=== PATIENT | male | born 1960 | race Caucasian/White ===

== ENCOUNTER 2016-07-24 11:31 | Emergency (ER) | payer OTHER ==
[2016-07-24 11:38] VITALS: BP 193/106; PULSE 74; RESP 20; TEMP 98.2
[2016-07-24] MEDS ORDERED: HYDROcodone/APAP 5-325MG 1 EACH TAB PO STA (12:03)
[2016-07-24] MEDS ORDERED: KETOROLAC 60 MG/2 ML VIAL IM STA (12:03)
[2016-07-24] MEDS ORDERED: predniSONE 20 MG TAB PO STA (12:03)
--- NOTE | 2016-07-24 12:05 | ED ---
General Adult HPI - General Chief complaint: Extremity Injury, Lower Stated complaint: knee injury Time Seen by Provider: 07/24/16 11:39 Source: patient, RN notes reviewed, old records reviewed Mode of arrival: wheelchair Limitations: no limitations - History of Present Illness Initial comments: This is a 56-year-old male ER for evaluation of left knee pain. Patient twisting injury will getting his truck earlier today. Patient has history of arthritis, history of knee issues. Patient denies any specific trauma, did a twisting injury able to ambulate with full range of motion although decreased flexion, patient does admit to increased swelling on the, no modifying factors for symptoms since injury. No other injuries. Patient is able to bear weight - Related Data Home Medications Medication Instructions Recorded Confirmed Carvedilol [Coreg] 3.125 mg PO BID 07/24/16 07/24/16 Fenofibrate 160 mg PO DAILY 07/24/16 07/24/16 Gabapentin 600 mg PO HS 07/24/16 07/24/16 Hydrochlorothiazide 25 mg PO DAILY 07/24/16 07/24/16 Lisinopril [Zestril] 20 mg PO BID 07/24/16 07/24/16 Allergies Allergy/AdvReac Type Severity Reaction Status Date / Time No Known Allergies Allergy Verified 07/24/16 11:51 Review of Systems ROS Statement: Those systems with pertinent positive or pertinent negative responses have been documented in the HPI. ROS Other: All systems not noted in ROS Statement are negative. Past Medical History Past Medical History: Hyperlipidemia, Hypertension Additional Past Medical History / Comment(s): neuropathy, carpal tunnel History of Any Multi-Drug Resistant Organisms: None Reported Past Surgical History: Bowel Resection Additional Past Surgical History / Comment(s): carpal tunnel surgery Past Psychological History: No Psychological Hx Reported Smoking Status: Never smoker Past Alcohol Use History: Occasional Past Drug Use History: None Reported General Exam Limitations: no limitations General appearance: alert, in no apparent distress Head exam: Present: atraumatic, normocephalic, normal inspection Eye exam: Present: normal appearance, PERRL, EOMI. Absent: scleral icterus, conjunctival injection, periorbital swelling ENT exam: Present: normal exam, mucous membranes moist Neck exam: Present: normal inspection. Absent: tenderness, meningismus, lymphadenopathy Respiratory exam: Present: normal lung sounds bilaterally. Absent: respiratory distress, wheezes, rales, rhonchi, stridor Cardiovascular Exam: Present: regular rate, normal rhythm, normal heart sounds. Absent: systolic murmur, diastolic murmur, rubs, gallop, clicks GI/Abdominal exam: Present: soft, normal bowel sounds. Absent: distended, tenderness, guarding, rebound, rigid Extremities exam: Present: normal inspection, full ROM, normal capillary refill , other (Mild left joint effusion, tenderness no bony tenderness). Absent: tenderness, pedal edema, joint swelling, calf tenderness Back exam: Present: normal inspection Neurological exam: Present: alert, oriented X3, CN II-XII intact Psychiatric exam: Present: normal affect, normal mood Skin exam: Present: warm, dry, intact, normal color. Absent: rash Course Vital Signs 07/24/16 11:35 Temperature 98.2 F Pulse Rate 74 Respiratory 20 Rate Blood Pressure 193/106 O2 Sat by Pulse 99 Oximetry - Reevaluation(s) Reevaluation #1: 07/24/16 12:04 Patient's symptoms improved Medical Decision Making - Medical Decision Making 56 console the left knee pain. Left knee sprain, patient with twisting injury to left knee. He she'll given follow-up with orthopedics, pandas times control able to ambulate without difficulty and patient can be discharged home Disposition Clinical Impression: Strain of left knee, Effusion, left knee Disposition: HOME SELF-CARE Condition: Good Instructions: Knee Sprain (ED), Knee Pain (ED) Referrals: Tito Chiu DO [Primary Care Provider] - 1-2 days
== END 2016-07-24 12:25 | disposition home or self-care (01) ==
LOC: EC 11:31
DX: S86.912A Strain of unspecified muscle(s) and tendon(s) at lower leg level, left leg, initial encounter (principal); I10 Essential (primary) hypertension; G62.9 Polyneuropathy, unspecified; E78.5 Hyperlipidemia, unspecified; M19.90 Unspecified osteoarthritis, unspecified site; Z79.899 Other long term (current) drug therapy; X50.1XXA Overexertion from prolonged static or awkward postures, initial encounter
CPT/HCPCS: 99283; 96372; J1885; J7512

== ENCOUNTER → 2016-09-25 | Outpatient (CLI) | payer OTHER ==
--- NOTE | 2016-09-25 14:00 | CONS ---
DATE OF CONSULTATION: 09/25/2016 CONSULTATION/NEW PATIENT EVALUATION: A 56-year-old gentleman who has been evaluated in the [facility] for possible obstructive sleep apnea-hypopnea syndrome. HISTORY OF PRESENT ILLNESS/SLEEP-WAKE EVALUATION: SLEEP SCHEDULE: Patient's usual sleep schedule on working days from around 10 p.m. until 6:30 a.m. and on weekends from around 10 p.m. to 8 a.m. FALLING ASLEEP: Sometimes he has problem with falling asleep related to the pain and numbness in his arms, back and feet. DURING SLEEP: He sleeps with his and according to her, he snores. He wakes up with nocturia. He usually sleeps on the side and back position. No history of hypnagogic hallucinations, sleep paralysis or cataplexy. DURING THE DAY/WAKE STATE: He usually does not take any naps. [place] Sleepiness Scale is 6. Past medical history positive for hypertension, hyperlipidemia, carpal tunnel syndrome, numbness in the arms and legs. Also back problems, neck problems. PAST SURGICAL HISTORY: Status post bilateral surgery for carpal tunnel syndrome. MEDICATIONS: Patient does not remember the name of the medications. He takes medications for hypertension, cholesterol and he is on Neurontin. SOCIAL HISTORY: Negative for smoking. Alcohol consumption up to 6 beers per month. REVIEW OF SYSTEMS: Numbness and feeling cold in the feet and numbness in the arms. FAMILY HISTORY: Arthritis, snoring, diabetes, cancer. During physical exam, a 56-year-old gentleman without distress. BP 149/91, HR 78, RR 16. Height 5 foot 7-1/2, weight 271. BMI of 41.8. Neck 18 inches in circumference. Temperature 97.6. Oxygen saturation at room air 98%. Oropharynx extremely low position of soft palate Mallampati 4. ABDOMEN: Obese. NECK: Supple. No JVD. Thyroid is not palpable. LUNGS: Clear to percussion and to auscultation. Good air exchange. No wheezing or rhonchi. HEART: S1, S2 regular. No murmurs, gallops or rubs. EXTREMITIES: No clubbing or cyanosis. Some numbness with the touching of the feet. IMPRESSION: 1. Snoring, awakenings from sleep with nocturia, extremely low position of soft palate, obstructive sleep apnea-hypopnea syndrome. 2. Obesity, body mass index 41.8. 3. Hypertension. 4. Neck problems. 5. Back problems with a history of herniation of discs. 6. Numbness of the feet, most probably related to back problems. 7. History of carpal tunnel syndrome, bilaterally, status post surgical treatment but patient continued to have some numbness in the arms. PLAN: 1. Polysomnography for evaluation of patient's breathing during sleep. 2. CPAP/BiPAP titration if sleep study confirms obstructive sleep apnea-hypopnea syndrome. 3. Preferable position during sleep on the side. 4. No driving if patient feels any sleepiness. Patient is aware of civil and criminal liability for unsafe driving. 5. I will see patient for followup visit to explain results of the testing and following plan. Thank you very much for allowing referring this patient for consultation. Sincerely, Armando Cruz MD, PhD, FAASM. Diplomat of [employer], Sleep Medicine Board by [employer] Tester/[employer] of [facility] [place]
== END ==
LOC: SLEEP 12:23
PROVIDERS: ATTEND Internal Medicine
DX: G47.33 Obstructive sleep apnea (adult) (pediatric) (principal); E66.9 Obesity, unspecified; I10 Essential (primary) hypertension; Z87.39 Personal history of other diseases of the musculoskeletal system and connective tissue; Z68.41 Body mass index [BMI] 40.0-44.9, adult
CPT/HCPCS: 99211

== ENCOUNTER → 2016-11-07 | Outpatient (CLI) | payer OTHER ==
--- NOTE | 2016-11-07 22:28 | MR ---
EXAMINATION TYPE: MR cervical spine wo con DATE OF EXAM: 11/07/2016 COMPARISON: NONE HISTORY: neck and back pain x4-5 years TECHNIQUE: Multiplanar, multisequence images of the cervical spine were acquired. C2-C3: No evidence for degenerative disc disease. No disc bulge/herniation or protrusion. No Canal stenosis. Foramina are patent bilaterally. C3-C4: No evidence for degenerative disc disease. No disc bulge/herniation or protrusion. No Canal stenosis. Bilateral foraminal narrowing is present from uncovertebral joint hypertrophy. C4-C5: No evidence for degenerative disc disease. No disc bulge/herniation or protrusion. No Canal stenosis. Moderate bilateral foraminal narrowing vertebral joint hypertrophy is present. C5-C6: Central disc bulge is present. These may have subligamentous disc extension inferiorly. This i s mild anterior thecal sac compression. No cord contact is evident. No spinal canal stenosis present. Bilateral foraminal narrowing from uncovertebral C6-C7: Broad-based central disc bulge is present with mild anterior thecal sac compression. No AP spi nal canal stenosis. C7-T1: There is a central and right paracentral disc herniation moderate size with moderate anterior thecal sac compression. This is in close approximation with the spinal cord. Mild cord flattening may be present. Right foramen is narrowed. Disc desiccation is present throughout the cervical spine. Cervical spinal cord maintains normal sign al through its visualized course. Vertebral body heights are preserved. IMPRESSION: 1. Large central and right paracentral disc herniation C7-T1 with cord flattening. 2. C5-6 disc bulging which may have some subligamentous disc extension. No cord contact is evident.
== END | disposition home or self-care (01) ==
LOC: RADMRIMAIN 20:48
PROVIDERS: ATTEND Nurse Practitioner Family
DX: M50.23 Other cervical disc displacement, cervicothoracic region (principal); M50.222 Other cervical disc displacement at C5-C6 level
CPT/HCPCS: 72141

== ENCOUNTER 2017-01-30 17:12 | Observation (INO) | payer OTHER ==
[2017-01-30] MEDS ORDERED: SODIUM CHLORIDE 0.9% 500 ML IV STA (17:34)
--- NOTE | 2017-01-30 17:49 | ED ---
General Adult HPI - General Chief complaint: Recheck/Abnormal Lab/Rx Stated complaint: Hypertension. Sent by Time Seen by Provider: 01/30/17 17:25 Source: patient Mode of arrival: ambulatory Limitations: no limitations - History of Present Illness Initial comments: 56-year-old male patient with a past medical history of hypertension, hyperlipidemia and most recently acute kidney injury presents to emergency department today for evaluation of high blood pressure. Patient states that he was in to see his primary care physician today because he has been having headaches for the last couple of days and his blood pressure was in the 200s over 120s. Patient states that 3 weeks ago he had been not feeling well and was having episodes of dizziness so he went in to see his primary care doctor, states that she did blood work at that time and found that he had some kidney failure. Patient states that she took him off his hydrochlorothiazide and lisinopril at that time leaving him to take his Coreg 3.125 mg. Patient states that he has been checking his blood pressure at home and has had high levels since been taken off these medications. Patient states he has also had some intermittent chest pain throughout the last couple of weeks, sweats, nausea, and intermittent headaches. States that the chest pain is mild in the last for a short time and then dissipate. Patient states that he currently has a generalized mild headache. Denies any current chest pain. Patient states that his primary care physician and encouraged him to come to the emergency department for further evaluation today. Patient denies any recent fever, chills, shortness breath, abdominal pain, vomiting, diarrhea, back pain, numbness, tingling, weakness, hematuria, dysuria, urinary frequency, urinary urgency, decreased urine output, visual changes, extremity swelling, or any other complaints. - Related Data Home Medications Medication Instructions Recorded Confirmed Carvedilol [Coreg] 3.125 mg PO BID 07/24/16 01/30/17 Gabapentin 600 mg PO BID 07/24/16 01/30/17 Allergies Allergy/AdvReac Type Severity Reaction Status Date / Time No Known Allergies Allergy Verified 01/30/17 17:54 Review of Systems ROS Statement: Those systems with pertinent positive or pertinent negative responses have been documented in the HPI. ROS Other: All systems not noted in ROS Statement are negative. Past Medical History Past Medical History: Hyperlipidemia, Hypertension Additional Past Medical History / Comment(s): neuropathy, carpal tunnel, bowel obstruction History of Any Multi-Drug Resistant Organisms: None Reported Past Surgical History: Bowel Resection Additional Past Surgical History / Comment(s): carpal tunnel surgery Past Psychological History: No Psychological Hx Reported Smoking Status: Never smoker Past Alcohol Use History: Occasional Past Drug Use History: None Reported General Exam Limitations: no limitations General appearance: alert, in no apparent distress Head exam: Present: atraumatic, normocephalic, normal inspection Eye exam: Present: normal appearance, PERRL, EOMI. Absent: scleral icterus, conjunctival injection, periorbital swelling ENT exam: Present: normal exam, normal oropharynx, mucous membranes moist Neck exam: Present: normal inspection, full ROM. Absent: tenderness, meningismus, lymphadenopathy Respiratory exam: Present: normal lung sounds bilaterally. Absent: respiratory distress, wheezes, rales, rhonchi, stridor Cardiovascular Exam: Present: regular rate, normal rhythm, normal heart sounds. Absent: systolic murmur, diastolic murmur, rubs, gallop, clicks GI/Abdominal exam: Present: soft, normal bowel sounds. Absent: distended, tenderness, guarding, rebound, rigid Extremities exam: Present: normal inspection, full ROM, normal capillary refill. Absent: tenderness, pedal edema, joint swelling, calf tenderness Back exam: Present: normal inspection Neurological exam: Present: alert, oriented X3, CN II-XII intact Psychiatric exam: Present: normal affect, normal mood Skin exam: Present: warm, dry, intact, normal color. Absent: rash Course Vital Signs 01/30/17 01/30/17 01/30/17 17:15 18:00 18:30 Temperature 98.9 F Pulse Rate 79 65 64 Respiratory 20 18 Rate Blood Pressure 136/90 181/115 199/113 O2 Sat by Pulse 97 99 Oximetry 01/30/17 01/30/17 01/30/17 18:40 18:47 19:30 Temperature 97.8 F Pulse Rate 64 Respiratory 16 Rate Blood Pressure 219/106 188/89 183/99 O2 Sat by Pulse 98 Oximetry 01/30/17 19:44 Temperature Pulse Rate 64 Respiratory 16 Rate Blood Pressure 194/107 O2 Sat by Pulse 98 Oximetry - Reevaluation(s) Reevaluation #1: 01/30/17 18:33 Patients BP has remained elevated. Will give 20mg Labetalol IVP and continue to monitor. Awaiting results at this time. EKG Findings - EKG Comments: EKG Findings:: EKG obtained at 1744 reveals normal sinus rhythm, minimal voltage criteria for LVH, may be normal variant, nonspecific T-wave abnormality , ventricular rate 72, ND interval 176, QRS jain 84, QT 378, QTC 413. No evidence of ST elevation or depression. No EKG on file for comparison. Medical Decision Making - Medical Decision Making 56-year-old male patient presented to emergency department today for evaluation of hypertension. During history and physical exam patient reported having intermittent chest pain for the last 2 weeks as well as being newly diagnosed with kidney failure by his primary care physician. Lab work was obtained and did show a BUN of 33, creatinine of 2.09, and a GFR of 33. Patient did report that his initial GFR with lab work obtained by his doctor was 19 so this has improved. EKG did show some changes however there is no comparison for evaluation. Did discuss the case with my attending Dr. Mc who agrees the patient should be admitted for further evaluation by cardiology. He did speak to Leonor FERRIS for Dr. Eubanks who accepted the patient. In addition patient's blood pressure did remain elevated throughout stay even after a total of 40 mg of labetalol had been given. Hydralazine was added for as needed dosing for the floor. Patient was also started on aspirin and Nitropaste. - Lab Data Result diagrams: 01/30/17 17:42 01/30/17 17:42 Lab Results 01/30/17 01/30/17 01/30/17 Range/Units 17:42 17:42 17:42 WBC 7.6 (3.8-10.6) k/uL RBC 4.35 (4.30-5.90) m/uL Hgb 13.9 (13.0-17.5) gm/dL Hct 38.8 L (39.0-53.0) % MCV 89.3 (80.0-100.0) fL MCH 32.0 (25.0-35.0) pg MCHC 35.9 (31.0-37.0) g/dL RDW 14.0 (11.5-15.5) % Plt Count 194 (150-450) k/uL Neutrophils % 62 % Lymphocytes % 26 % Monocytes % 6 % Eosinophils % 3 % Basophils % 1 % Neutrophils # 4.7 (1.3-7.7) k/uL Lymphocytes # 1.9 (1.0-4.8) k/uL Monocytes # 0.5 (0-1.0) k/uL Eosinophils # 0.2 (0-0.7) k/uL Basophils # 0.1 (0-0.2) k/uL PT (9.0-12.0) sec INR (<1.2) APTT (22.0-30.0) sec Sodium 144 (137-145) mmol/L Potassium 4.3 (3.5-5.1) mmol/L Chloride 110 H (98-107) mmol/L Carbon Dioxide 22 (22-30) mmol/L Anion Gap 12 mmol/L BUN 33 H (9-20) mg/dL Creatinine 2.09 H (0.66-1.25) mg/dL Est GFR (MDRD) Af Amer 40 (>60 ml/min/1.73 sqM) Est GFR (MDRD) Non-Af 33 (>60 ml/min/1.73 sqM) Glucose 101 H (74-99) mg/dL Calcium 9.9 (8.4-10.2) mg/dL Magnesium 1.7 (1.6-2.3) mg/dL Total Bilirubin 0.5 (0.2-1.3) mg/dL AST 24 (17-59) U/L ALT 33 (21-72) U/L Alkaline Phosphatase 70 (38-126) U/L Total Creatine Kinase 107 (55-170) U/L CK-MB (CK-2) 1.6 (0.0-2.4) ng/mL CK-MB (CK-2) Rel Index 1.5 Troponin I <0.012 (0.000-0.034) ng/mL Total Protein 7.2 (6.3-8.2) g/dL Albumin 4.4 (3.5-5.0) g/dL Urine Color Urine Appearance (Clear) Urine pH (5.0-8.0) Ur Specific [place] (1.001-1.035) Urine Protein (Negative) Urine Glucose (UA) (Negative) Urine Ketones (Negative) Urine Blood (Negative) Urine Nitrite (Negative) Urine Bilirubin (Negative) Urine Urobilinogen (<2.0) mg/dL Ur Leukocyte Esterase (Negative) Urine RBC (0-5) /hpf Urine WBC (0-5) /hpf Urine Bacteria (None) /hpf Hyaline Casts (0-2) /lpf 01/30/17 01/30/17 Range/Units 17:42 18:25 WBC (3.8-10.6) k/uL RBC (4.30-5.90) m/uL Hgb (13.0-17.5) gm/dL Hct (39.0-53.0) % MCV (80.0-100.0) fL MCH (25.0-35.0) pg MCHC (31.0-37.0) g/dL RDW (11.5-15.5) % Plt Count (150-450) k/uL Neutrophils % % Lymphocytes % % Monocytes % % Eosinophils % % Basophils % % Neutrophils # (1.3-7.7) k/uL Lymphocytes # (1.0-4.8) k/uL Monocytes # (0-1.0) k/uL Eosinophils # (0-0.7) k/uL Basophils # (0-0.2) k/uL PT 9.7 (9.0-12.0) sec INR 0.9 (<1.2) APTT 22.7 (22.0-30.0) sec Sodium (137-145) mmol/L Potassium (3.5-5.1) mmol/L Chloride (98-107) mmol/L Carbon Dioxide (22-30) mmol/L Anion Gap mmol/L BUN (9-20) mg/dL Creatinine (0.66-1.25) mg/dL Est GFR (MDRD) Af Amer (>60 ml/min/1.73 sqM) Est GFR (MDRD) Non-Af (>60 ml/min/1.73 sqM) Glucose (74-99) mg/dL Calcium (8.4-10.2) mg/dL Magnesium (1.6-2.3) mg/dL Total Bilirubin (0.2-1.3) mg/dL AST (17-59) U/L ALT (21-72) U/L Alkaline Phosphatase (38-126) U/L Total Creatine Kinase (55-170) U/L CK-MB (CK-2) (0.0-2.4) ng/mL CK-MB (CK-2) Rel Index Troponin I (0.000-0.034) ng/mL Total Protein (6.3-8.2) g/dL Albumin (3.5-5.0) g/dL Urine Color Yellow Urine Appearance Clear (Clear) Urine pH 5.5 (5.0-8.0) Ur Specific [place] 1.013 (1.001-1.035) Urine Protein 2+ H (Negative) Urine Glucose (UA) Negative (Negative) Urine Ketones Negative (Negative) Urine Blood Negative (Negative) Urine Nitrite Negative (Negative) Urine Bilirubin Negative (Negative) Urine Urobilinogen <2.0 (<2.0) mg/dL Ur Leukocyte Esterase Negative (Negative) Urine RBC <1 (0-5) /hpf Urine WBC <1 (0-5) /hpf Urine Bacteria Rare H (None) /hpf Hyaline Casts 1 (0-2) /lpf - Radiology Data Radiology results: report reviewed, image reviewed Frontal and lateral views of the chest are obtained, heart and mediastinum are normal. Lungs are clear. Diaphragm is normal. Bony thorax is intact. Impression by Dr. Patel shows normal chest. No change. Disposition Clinical Impression: Chest pain, Hypertension, Acute kidney failure Disposition: ADMITTED IP TO THIS [facility] Condition: Fair Decision to Admit Reason: Admit from EC Decision Date: 01/30/17 Decision Time: 19:27
[2017-01-30 18:11] LABS: Basophils # (A) 0.1 k/uL (0-0.2); Basophils % (A) 1 %; CH 31.9; Eosinophils # (A) 0.2 k/uL (0-0.7); Eosinophils % (A) 3 %; HCT 38.8 % (39.0-53.0); HDW 3.16; HGB 13.9 gm/dL (13.0-17.5); Luc # (Auto) 0.18; Luc % (Auto) 2; Lymphocytes # (A) 1.9 k/uL (1.0-4.8); Lymphocytes % (A) 26 %; MCHC 35.9 g/dL (31.0-37.0); MCV 89.3 fL (80.0-100.0); Mean Platelet Volume 7.2; Monocytes # (A) 0.5 k/uL (0-1.0); Monocytes % (A) 6 %; Neutrophils # (A) 4.7 k/uL (1.3-7.7); Neutrophils % (A) 62 %; RBC 4.35 m/uL (4.30-5.90); WBC 7.6 k/uL (3.8-10.6)
[2017-01-30 18:19] LABS: INR 0.9 (<1.2); Partial Thromboplastin Time 22.7 sec (22.0-30.0); Prothrombin Time 9.7 sec (9.0-12.0)
[2017-01-30 18:20] LABS: Calcium 9.9 mg/dL (8.4-10.2); Magnesium 1.7 mg/dL (1.6-2.3); Potassium 4.3 mmol/L (3.5-5.1); Total Bilirubin 0.5 mg/dL (0.2-1.3); Total Protein 7.2 g/dL (6.3-8.2)
[2017-01-30 18:31] LABS: Creatine Kinase 107 U/L (55-170)
[2017-01-30] MEDS ORDERED: LABETALOL 5 MG/ML VIAL MDV IVP STA ×2 (18:33→19:15)
--- NOTE | 2017-01-30 18:39 | XR ---
EXAMINATION TYPE: XR chest 2V DATE OF EXAM: 01/30/2017 COMPARISON: 01/02/2016 HISTORY: Hypertension TECHNIQUE: Frontal and lateral views of the chest are obtained. FINDINGS: Heart and mediastinum are normal. Lungs are clear. Diaphragm is normal. Bony thorax is int act. IMPRESSION: Normal chest. No change.
[2017-01-30 18:44] LABS: Creatine Kinase MB 1.6 ng/mL (0.0-2.4); Troponin I <0.012 ng/mL (0.000-0.034)
[2017-01-30 18:49] LABS: Appearance,Urine Clear (Clear); Bacteria,Urine Rare /hpf; Bilirubin,Urine Negative (Negative); Glucose,Urine (UA) Negative (Negative); Ketones,Urine Negative (Negative); Leukocyte Esterase,Urine Negative (Negative); Nitrite,Urine Negative (Negative); PH, Urine 5.5 (5.0-8.0); Particle Count 1780; Protein,Urine 2+ (Negative); RBC,Urine <1 /hpf (0-5); Specific Gravity,Urine 1.013 (1.001-1.035); UA Billing (MACRO vs. MICRO) MICRO; Urobilinogen,Urine <2.0 mg/dL (<2.0); WBC,Urine <1 /hpf (0-5)
[2017-01-30] MEDS ORDERED: NALOXONE 0.4 MG/ML 1 ML VIAL IV PRN (19:23)
[2017-01-30] MEDS ORDERED: NITROGLYCERIN SL TABS 0.4 MG TAB SUBLINGUAL PRN (19:25)
[2017-01-30] MEDS ORDERED: ASPIRIN 81 MG PO STA (19:25)
[2017-01-30] MEDS ORDERED: hydrALAZINE HCL 20 MG/ML 1 ML VIAL IVP STA (19:54)
[2017-01-30] MEDS ORDERED: hydrALAZINE HCL 20 MG/ML 1 ML VIAL IVP PRN (19:54)
[2017-01-30] MEDS: CARVEDILOL 3.125 MG TAB PO SCH (20:49)
[2017-01-30] MEDS: GABAPENTIN 300 MG CAP PO SCH (20:49)
[2017-01-30 22:29] VITALS: RESP 18
[2017-01-30] MEDS: NITROGLYCERIN OINT 1 INCH/GM PACKET TOPICAL SCH (22:55)
[2017-01-30] MEDS: ACETAMINOPHEN TAB 325 MG TAB PO PRN (23:17)
[2017-01-31 00:27] LABS: Creatine Kinase MB 1.3 ng/mL (0.0-2.4); Troponin I 0.014 ng/mL (0.000-0.034)
[2017-01-31] MEDS: NITROGLYCERIN OINT 1 INCH/GM PACKET TOPICAL SCH ×3 (06:06→16:51)
[2017-01-31] MEDS: CARVEDILOL 3.125 MG TAB PO SCH ×2 (06:08→16:51)
[2017-01-31 06:39] LABS: Cholesterol 176 mg/dL (<200); HDL Cholesterol 39 mg/dL (40-60)
[2017-01-31 07:02] LABS: Creatine Kinase MB 1.3 ng/mL (0.0-2.4); Troponin I 0.017 ng/mL (0.000-0.034)
[2017-01-31] MEDS: GABAPENTIN 300 MG CAP PO SCH (08:16)
[2017-01-31] MEDS: ASPIRIN 81 MG PO SCH (08:43)
--- NOTE | 2017-01-31 08:46 | P.CRDCN ---
History of Present Illness Consult date: 01/31/17 Consult reason: hypertension History of present illness: 56-year-old gentleman with history of hypertension but has not been particularly well controlled comes to hospital with uncontrolled hypertension and vague atypical chest pain. His chest discomfort a sharp pericardial unrelated to exertionwith diaphoresis without clear-cut relieving or exacerbating factors. Patient has had poorly controlled blood pressure. On his presentation blood pressures were elevated. Patient has chronic renal insufficiency related to hypertension. He is currently on Coreg I'm going to and hydralazine 50 every 8 and Norvasc 10 mg daily for optimal blood pressure control. EKG shows sinus rhythm without ST-T wave changes. Review of Systems Constitutional: Denies chills. Denies fever. Eyes: Denies blurred vision. Denies pain. Ears, nose, mouth and throat: Denies headache. Denies sore throat. Cardiovascular:has chest pain. Denies shortness of breath. Respiratory: Denies cough. Gastrointestinal: Denies abdominal pain. Denies diarrhea. Denies nausea. Denies vomiting. Musculoskeletal: Denies myalgias. Integumentary: Denies pruritus. Denies rash. Neurological: Denies numbness. Denies weakness. Psychiatric: Denies anxiety. Denies depression. Endocrine: Denies fatigue. Denies weight change. Genitourinary: Denies burning, hematuria, frequency of urination. Hematological: No anemia or excess bleeding. Past Medical History Past Medical History: Hyperlipidemia, Hypertension Additional Past Medical History / Comment(s): neuropathy, carpal tunnel, bowel obstruction History of Any Multi-Drug Resistant Organisms: None Reported Past Surgical History: Bowel Resection Additional Past Surgical History / Comment(s): carpal tunnel surgery Past Anesthesia/Blood Transfusion Reactions: No Reported Reaction Past Psychological History: No Psychological Hx Reported Smoking Status: Never smoker Past Alcohol Use History: Occasional Past Drug Use History: None Reported - Past Family History Father Family Medical History: Diabetes Mellitus Additional Family Medical History / Comment(s): pacemaker Mother Family Medical History: Hypertension, Renal Disease Additional Family Medical History / Comment(s): ulcers Medications and Allergies Home Medications Medication Instructions Recorded Confirmed Type Carvedilol [Coreg] 3.125 mg PO BID 07/24/16 01/30/17 History Gabapentin 600 mg PO BID 07/24/16 01/30/17 History Allergies Allergy/AdvReac Type Severity Reaction Status Date / Time No Known Allergies Allergy Verified 01/30/17 17:54 Physical Exam Vitals: Vital Signs Temp Pulse Pulse Pulse Resp BP BP 01/31/17 04:00 97.5 F L 66 18 165/99 01/31/17 00:00 99 F 72 18 144/72 01/30/17 22:15 97 F L 76 75 18 148/88 01/30/17 20:15 01/30/17 19:44 64 16 194/107 01/30/17 19:30 97.8 F 64 16 183/99 01/30/17 18:47 188/89 01/30/17 18:40 219/106 01/30/17 18:30 64 18 199/113 01/30/17 18:00 65 181/115 01/30/17 17:15 98.9 F 79 20 136/90 BP Pulse Ox 01/31/17 04:00 95 01/31/17 00:00 95 01/30/17 22:15 164/90 95 01/30/17 20:15 98 01/30/17 19:44 98 01/30/17 19:30 98 01/30/17 18:47 01/30/17 18:40 01/30/17 18:30 99 01/30/17 18:00 01/30/17 17:15 97 Intake and Output 01/30/17 01/31/17 01/31/17 22:59 06:59 14:59 Other: # Voids 0 Weight 122.47 kg 128.2 kg General: The patient is awake and alert, in no distress, and does not appear acutely ill. Skin: Skin is warm and dry and no rashes or lesions are noted. Eye: Pupils are equal, round and reactive to light, extra-ocular movements are intact; there is normal conjunctiva bilaterally. Ears, nose, mouth and throat: There are moist mucous membranes and no oral lesions. Neck: The neck is supple, there is no tenderness or JVD. Cardiovascular: There is a regular rate and rhythm. No murmur, rub or gallop is appreciated. Respiratory: Lungs are clear to auscultation, respirations are non-labored, breath sounds are equal. Gastrointestinal: Soft, non-distended, non-tender abdomen without masses or organomegaly noted. There is no rebound or guarding present. Bowel sounds are unremarkable. Back: There is no tenderness to palpation in the midline. There is no obvious deformity. Musculoskeletal: Normal ROM, no tenderness, There is no pedal edema. There is no calf tenderness or swelling. Extremities: No edema. Vascular: Femoral pulse is normal. Posterior tibial pulses are normal .Dorsalis pedis is palpable. Neurological: CN II-XII intact. There are no obvious motor or sensory deficits. Speech is normal. Psychiatric: Cooperative, appropriate mood & affect, normal judgment. Results 01/30/17 17:42 01/30/17 17:42 Cardiac Enzymes 01/30/17 01/30/17 01/30/17 Range/Units 17:42 17:42 23:27 AST 24 (17-59) U/L CK-MB (CK-2) 1.6 1.3 (0.0-2.4) ng/mL Troponin I <0.012 0.014 (0.000-0.034) ng/mL 01/31/17 Range/Units 05:31 AST (17-59) U/L CK-MB (CK-2) 1.3 (0.0-2.4) ng/mL Troponin I 0.017 (0.000-0.034) ng/mL Coagulation 01/30/17 Range/Units 17:42 PT 9.7 (9.0-12.0) sec APTT 22.7 (22.0-30.0) sec Lipids 01/31/17 Range/Units 05:31 Triglycerides 173 H (<150) mg/dL Cholesterol 176 (<200) mg/dL HDL Cholesterol 39 L (40-60) mg/dL CBC 01/30/17 Range/Units 17:42 WBC 7.6 (3.8-10.6) k/uL RBC 4.35 (4.30-5.90) m/uL Hgb 13.9 (13.0-17.5) gm/dL Hct 38.8 L (39.0-53.0) % Plt Count 194 (150-450) k/uL Comprehensive Metabolic Panel 01/30/17 Range/Units 17:42 Sodium 144 (137-145) mmol/L Potassium 4.3 (3.5-5.1) mmol/L Chloride 110 H (98-107) mmol/L Carbon Dioxide 22 (22-30) mmol/L BUN 33 H (9-20) mg/dL Creatinine 2.09 H (0.66-1.25) mg/dL Glucose 101 H (74-99) mg/dL Calcium 9.9 (8.4-10.2) mg/dL AST 24 (17-59) U/L ALT 33 (21-72) U/L Alkaline Phosphatase 70 (38-126) U/L Total Protein 7.2 (6.3-8.2) g/dL Albumin 4.4 (3.5-5.0) g/dL Current Medications Generic Name Dose Route Start Last Admin Trade Name Freq PRN Reason Stop Dose Admin Acetaminophen 650 mg 01/30/17 20:42 01/30/17 23:17 Tylenol Tab PO 650 mg Q4HR PRN Administration Fever and/ or Mild Pain Amlodipine Besylate 10 mg 01/31/17 09:00 Norvasc PO DAILY [facility] Aspirin 81 mg 01/31/17 09:00 01/31/17 08:43 Aspirin PO Not Given DAILY [facility] Carvedilol 3.125 mg 01/30/17 21:00 01/31/17 06:08 Coreg PO 3.125 mg AC-BID ALISA Administration Enoxaparin Sodium 40 mg 01/31/17 09:00 Lovenox SQ DAILY [facility] Gabapentin 600 mg 01/30/17 21:00 01/31/17 08:16 Neurontin PO 600 mg BID ALISA Administration Hydralazine HCl 50 mg 01/31/17 09:00 Apresoline PO TID [facility] Naloxone HCl 0.2 mg 01/30/17 19:23 Narcan IV Q2M PRN Opioid Reversal Nitroglycerin 1 inch 01/31/17 00:00 01/31/17 06:06 Nitro-Bid Oint TOPICAL Not Given Q6H [facility] Nitroglycerin 0.4 mg 01/30/17 19:25 Nitrostat SUBLINGUAL Q5M PRN Chest Pain Intake and Output 01/30/17 01/31/17 01/31/17 22:59 06:59 14:59 Other: # Voids 0 Weight 122.47 kg 128.2 kg 01/30/17 17:42 01/30/17 17:42 EKG Interpretations (text) Normal sinus rhythm with nonspecific ST-T wave changes Assessment and Plan Plan: Hypertensive heart disease Chronic renal failure secondary to uncontrolled hypertension Atypical chest pain I will adjust antihypertensives to better control the blood pressure. I will obtain a 2-D echo to assess LV function. I adjusted the antihypertensives. We should be able to discharge him home tomorrow.
[2017-01-31] MEDS ORDERED: ASPIRIN 325 MG TAB PO SCH (09:00)
[2017-01-31] MEDS: hydrALAZINE HCL 50 MG TAB PO SCH ×3 (09:07→21:18)
[2017-01-31] MEDS: ENOXAPARIN 40 MG/0.4 ML SYRINGE SQ SCH (09:07)
[2017-01-31] MEDS: amLODIPine 10 MG TAB PO SCH (09:07)
[2017-01-31] MEDS: ACETAMINOPHEN TAB 325 MG TAB PO PRN (10:40)
--- NOTE | 2017-01-31 12:09 | ECHOF ---
Referral Reason:HTN, Chest pain MEASUREMENTS -------- HEIGHT: 172.7 cm WEIGHT: 127.9 kg BP: 165/99 RVIDd: 3.5 cm (< 3.3) IVSd: 1.5 cm (0.6 - 1.1) LVIDd: 4.6 cm (3.9 - 5.3) LVPWd: 1.5 cm (0.6 - 1.1) IVSs: 1.8 cm LVIDs: 3.4 cm LVPWs: 1.7 cm LAESV Index (A-L): 35.58 ml/m Ao Diam: 4.0 cm (2.0 - 3.7) AV Cusp: 2.7 cm (1.5 - 2.6) LA Diam: 4.8 cm (2.7 - 3.8) MV EXCURSION: 17.722 mm (> 18.000) MV EF SLOPE: 58 mm/s (70 - 150) EPSS: 0.6 cm MV E Rober: 0.61 m/s MV DecT: 337 ms MV A Rober: 0.91 m/s MV E/A Ratio: 0.67 RAP: 5.00 mmHg RVSP: 15.22 mmHg FINDINGS -------- Sinus rhythm. Morbid Obesity The left ventricular size is normal. There is moderate concentric left ventricular hypertrophy. Overall left ventricular systolic function is normal with, an EF between 55 - 60 %. The right ventricle is normal in size. LA is moderately dilated 34-39 ml/m2 The right atrial size is normal. The aortic valve is trileaflet, and appears structurally normal. No aortic stenosis or regurgitation. Mild mitral annular calcification present. Mild mitral regurgitation is present. Mild tricuspid regurgitation present. There is no evidence of pulmonary hypertension. The right ventricular systolic pressure, as measured by Doppler, is 15.22mmHg. The pulmonic valve was not well visualized. The aortic root size is normal. There is no pericardial effusion. CONCLUSIONS -------- 1. Morbid Obesity 2. The right ventricular systolic pressure, as measured by Doppler, is 15.22mmHg. 3. The pulmonic valve was not well visualized. 4. There is no pericardial effusion. 5. The left ventricular size is normal. 6. There is moderate concentric left ventricular hypertrophy. 7. Overall left ventricular systolic function is normal with, an EF between 55 - 60 %. 8. LA is moderately dilated 34-39 ml/m2 9. Mild mitral annular calcification present. 10. Mild mitral regurgitation is present. 11. Mild tricuspid regurgitation present. 12. There is no evidence of pulmonary hypertension. ADON: Maryann Roque RDCS
[2017-01-31 13:34] VITALS: BMI 43.0
[2017-01-31] MEDS: GABAPENTIN 100 MG CAP PO SCH ×2 (15:34→21:25)
--- NOTE | 2017-01-31 16:44 | HP ---
HISTORY AND PHYSICAL DATE OF ADMISSION: 01/30/2017 PRESENTING COMPLAINT: Chest pain. HISTORY OF PRESENTING COMPLAINT: This is a very pleasant, 56-year-old patient of Dr. Chiu with known history of hypertension, hyperlipidemia. Patient was not taking his blood pressure medication for some time and recently was discovered to have renal kidney disease. Has an appointment to see Dr. Negrete as an outpatient, not feeling well. Had some chest pressure. According to patient, no shortness of breath. No dizziness. Just feeling a bit tired and run down. A bit of a headache. Went down to Dr. Chiu's office, discovered to have a blood pressure 220/110. Blood pressure at home was 190 systolic. Hence the patient was sent in. Patient's is present. REVIEW OF SYSTEMS: CONSTITUTIONAL: Tired. HEENT: As above. RESPIRATORY: None. CARDIOVASCULAR: As above. GASTROINTESTINAL: None GENITOURINARY: None. MUSCULOSKELETAL: Aches and pains in different joints. DERMATOLOGICAL: None. HEMATOLOGIC: None. LYMPHATIC none. PSYCHIATRY: None. NEUROLOGICAL: Peripheral neuropathy. PAST HISTORY: Hyperlipidemia, hypertension, chronic kidney disease, peripheral neuropathy, carpal tunnel, bowel obstruction. PAST SURGICAL HISTORY: Bowel resection, carpal tunnel surgery. SOCIAL HISTORY: Does not smoke. Alcohol occasionally. 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 . FAMILY HISTORY: Family history of diabetes and pacemaker. HOME MEDICATIONS: 1. Neurontin 600 mg p.o. b.i.d. 2. Coreg 3.125 p.o. b.i.d. ALLERGIES: None. ON EXAMINATION: VITAL SIGNS ON PRESENTATION: Temperature 98.9, pulse 79, respiratory rate 20, blood pressure up to 219/106, pulse ox 99% room air. GENERAL APPEARANCE: Well built, BMI 43. He is lying in bed, comfortable. EYES: Pupils equal. Conjunctivae normal. HENT: Oral cavity normal. NECK: JVD not raised. Mass not palpable. RESPIRATORY: Effort normal. LUNGS: Fair air entry. CARDIOVASCULAR: First and second sounds normal. No edema. ABDOMEN: Soft, nontender. Liver and spleen not palpable. LYMPHATIC: No lymph node palpable in the neck or axillae. PSYCHIATRY: Alert and oriented x3. Mood affect normal. NEUROLOGICAL: Pupils equal. Cranial nerves grossly intact. Power and sensation grossly intact. INVESTIGATIONS: White count 7.6, hemoglobin 13.9. Potassium 4.3, BUN 33, creatinine 2.09. LDL 102. Urine protein 2+. ASSESSMENT: 1. Accelerated hypertension causing cephalgia. 2. Hypertensive heart disease with left ventricular hypertrophy on a 2-D echocardiogram. 3. Hyperlipidemia. 4. 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 5. Morbid obesity. Body mass index 43.0. PLAN: Had a very lengthy discussion with the patient and the . Will consult dietitian. Did talk about weight loss measures. Dr. Negrete was was consulted. Patient on nitro paste, aspirin. Cardiology was consulted. Questions were answered. MMODL / IJN: [id number] /
[2017-02-01] MEDS: NITROGLYCERIN OINT 1 INCH/GM PACKET TOPICAL SCH ×2 (00:08→06:05)
[2017-02-01] MEDS: CARVEDILOL 3.125 MG TAB PO SCH (06:55)
[2017-02-01] MEDS: GABAPENTIN 100 MG CAP PO SCH (08:33)
[2017-02-01] MEDS: ENOXAPARIN 40 MG/0.4 ML SYRINGE SQ SCH (08:33)
[2017-02-01] MEDS: amLODIPine 10 MG TAB PO SCH (08:33)
[2017-02-01] MEDS: hydrALAZINE HCL 50 MG TAB PO SCH (08:33)
[2017-02-01] MEDS: ASPIRIN 81 MG PO SCH (08:33)
[2017-02-01] MEDS ORDERED: ATORVASTATIN 40 MG TAB PO SCH (09:00)
[2017-02-01 09:54] VITALS: BP 155/81; PULSE 73; TEMP 97.3
--- NOTE | 2017-02-01 10:31 | P.NPCON ---
History of Present Illness - Reason for Consult acute renal failure - History of Present Illness Patient is a 56-year-old white male with history of hypertension for about 10 years. He also has a history of hyperlipidemia. According to the patient and his family he was recently noted to have worsening renal function over the last 3 months and was scheduled to see me in the office the following week. Patient's blood pressure was uncontrolled after discontinuation of lisinopril and hydrochlorothiazide as outpatient. On 01/30/2017 patient's blood pressure was in the 200 range systolic at home and therefore he was advised to proceed to the emergency room and he was subsequently admitted. Patient denies use of any nonsteroidal anti-inflammatory agents. Patient states that his blood pressure had been fairly well controlled previously him. He also stated that he had been feeling lightheaded and dizzy on standing up which improved after discontinuation of some of his blood pressure medications. Patient does not remember having a systolic blood pressure in the 110 or 1:15 range. No significant urinary symptoms. No history of kidney stones. Serum creatinine was 2.0 mg/dL on 01/30/2017. We do not have any other labs available in the computer. According to the patient his previous creatinine was 2.6 on 01/17/2017. He also stated that he had started off with a GFR of 19 when he was initially found to have renal failure 3 months ago. Review of Systems As per HPI other systems negative Past Medical History Past Medical History: Hyperlipidemia, Hypertension Additional Past Medical History / Comment(s): neuropathy, carpal tunnel, bowel obstruction History of Any Multi-Drug Resistant Organisms: None Reported Past Surgical History: Bowel Resection Additional Past Surgical History / Comment(s): carpal tunnel surgery Past Anesthesia/Blood Transfusion Reactions: No Reported Reaction Past Psychological History: No Psychological Hx Reported Smoking Status: Never smoker Past Alcohol Use History: Occasional Past Drug Use History: None Reported - Past Family History Father Family Medical History: Diabetes Mellitus Additional Family Medical History / Comment(s): pacemaker Mother Family Medical History: Hypertension, Renal Disease Additional Family Medical History / Comment(s): ulcers Medications and Allergies Home Medications Medication Instructions Recorded Confirmed Type Carvedilol [Coreg] 3.125 mg PO BID 07/24/16 01/30/17 History Gabapentin 600 mg PO BID 07/24/16 01/30/17 History Allergies Allergy/AdvReac Type Severity Reaction Status Date / Time No Known Allergies Allergy Verified 01/30/17 17:54 Physical Exam Vitals: Vital Signs Temp Pulse Pulse Resp BP Pulse Ox 02/01/17 08:00 97.3 F L 73 18 155/81 98 02/01/17 04:00 98.1 F 67 18 154/95 98 02/01/17 00:05 97.5 F L 74 18 149/93 96 01/31/17 20:50 97.7 F 74 18 145/94 98 01/31/17 15:38 97.2 F L 77 18 161/86 96 01/31/17 12:00 97.1 F L 85 18 156/90 97 Intake and Output 01/31/17 02/01/17 02/01/17 22:59 06:59 14:59 Intake Total 360 360 Balance 360 360 Intake: Oral 360 360 Other: Voiding Method Toilet Toilet Urinal Urinal # Voids 1 1 Weight 125 kg On examination patient is comfortable awake alert oriented 3. He is not in any acute distress. Blood pressure is 155/81 Heart rate 73/m he is afebrile Examination of the heart S1 and S2 Examination lungs bilateral breath sounds are heard Abdomen is soft nontender Examination lower ex Mittie shows no significant edema. 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 Results - Lab Results Most recent lab results Calcium 9.9 mg/dL (8.4-10.2) 01/30/17 17:42 Magnesium 1.7 mg/dL (1.6-2.3) 01/30/17 17:42 01/30/17 17:42 01/30/17 17:42 Assessment and Plan Plan: Assessment 1. Acute kidney injury possibly prerenal currently improving with serum creatinine down to 2.0 on from 2.6 on 01/17/2017 as outpatient. Patient states that he has had an outpatient ultrasound done which did not reveal any significant findings except for a pelvic kidney which he has known from the past. We do not have an ultrasound report in the hospital EMR. Currently patient is voiding well. He remains off of the lisinopril which I we'll continue to maintain him off of. I will see him in the office in 2 days time as outpatient. 2. Hypertension uncontrolled prior to admission currently much better controlled. Patient is maintained on hydralazine 50 mg 3 times a day along with Coreg 3.125 twice a day and amlodipine at 10 mg daily. There is room to increase the Coreg and we can also add hydrochlorothiazide if his blood pressure is uncontrolled at home. However at this time he can be discharged on the current medications. Patient is advised to continue to avoid the use of NSAIDs and avoid high salt diet. We will obtain workup for secondary causes. There is suspicion for underlying renal artery stenosis as patient's blood pressure did shoot up once the Tal inhibitors were discontinued however at this time I will not be able to do any studies with IV contrast given his renal failure. 3. Hyperlipidemia 4. pelvic kidney on the left side 5. Proteinuria, will follow-up on the 24 hour urine report that was done as outpatient. This will need further workup. Plan Check labs today, check urine analysis and patient can be discharged from nephrology standpoint I will see him in the office in 2 days time as outpatient on his scheduled appointment. We will also have his previous labs for comparison from his primary care physician's office as outpatient. Continue to maintain off of TAL inhibitor's for now. Thank you for the consultation we'll continue to follow the patient with you during his hospitalization
[2017-02-01 11:25] LABS: Basophils # (A) 0.1 k/uL (0-0.2); Basophils % (A) 1 %; CH 32.4; CHCM 35.8; Eosinophils # (A) 0.3 k/uL (0-0.7); Eosinophils % (A) 4 %; HDW 3.12; HGB 14.8 gm/dL (13.0-17.5); Luc # (Auto) 0.18; Luc % (Auto) 2; Lymphocytes # (A) 1.6 k/uL (1.0-4.8); Lymphocytes % (A) 20 %; MCH 31.3 pg (25.0-35.0); MCHC 34.4 g/dL (31.0-37.0); MCV 91.1 fL (80.0-100.0); Mean Platelet Volume 7.4; Monocytes # (A) 0.5 k/uL (0-1.0); Monocytes % (A) 7 %; Neutrophils # (A) 5.4 k/uL (1.3-7.7); Neutrophils % (A) 66 %; RBC 4.72 m/uL (4.30-5.90); RDW 14.8 % (11.5-15.5); WBC 8.2 k/uL (3.8-10.6); WBC (Perox) 7.92
[2017-02-01 11:34] LABS: Potassium 4.3 mmol/L (3.5-5.1)
--- NOTE | 2017-02-01 12:24 | P.PN ---
Progress Note - Text Patient is doing much better today blood pressure is better controlled On exam comfortable at rest vital signs are stable there is a jugular venous distention carotid upstroke is normal there is no bruit chest exam reveals good air entry bilaterally heart exam reveals first and second heart sounds no gallop no murmur abdomen is soft exam extremities did not will any edema her for pulses are felt Hypertensive heart disease renal failure secondary to hypertension Will continue with current medications patient is stable for discharge will follow-up in the outpatient
--- NOTE | 2017-02-01 18:27 | P.DS ---
Providers Date of admission: 01/30/17 19:20 Expected date of discharge: 02/01/17 Attending physician: Remigio Eubanks Consults: 01/30/17 19:23 Consult Physician Stat Consulting Provider: [facility] Consult Reason/Comments: Chest Pain; Hypertension Do you want consulting provider notified?: Yes 01/31/17 12:27 Consult Physician Routine Consulting Provider: Brina Negrete Consult Reason/Comments: renal failure Do you want consulting provider notified?: Yes Primary care physician: Tito Chiu [facility] Course: FINAL DIAGNOSES: -Accelerated hypertension causing cephalgia -Hypertensive heart disease with left ventricular hypertrophy on a 2-D echocardiogram. -Hyperlipidemia. -Chronic kidney disease secondary to hypertensive nephrosclerosis, stage III. -Morbid obesity. Body mass index 43.0. HOSPTIAL COURSE: 56-year-old male who presented to the emergency department after he had been generally not been feeling well for some days, had some chest pressure feeling tired and run down and headachy. He was seen by Dr. Chiu was discovered to have a blood pressure of 220/110, as well as elevated kidney function blood pressure at home was 190 systolic. Patient was directed to the emergency department for further evaluation. Cardiology was consulted, labs drawn echocardiogram completed, medications added and adjusted. Blood pressure improved. Nephrology saw the patient, will follow up on labs and check urinalysis and she will see him in the office in 2 days. Recommend maintaining patient off of an RENE inhibitor for now. Dietitian saw the patient to address his weight status provided literature to help the patient lose weight. Patient ambulatory in the room and hallway, tolerating his diet eating 100% of his meals , last BM 02/01/2017. From a cardiology and medical standpoint patient's condition is stabilized, advised to lose weight and continue his discharge medication regimen and is stable for discharge. PHYSICAL EXAM: CARDIOVASCULAR: First and second sounds noted no edema RESPIRATORY: Effort normal, lung sounds diminished bilaterally Patient was seen and examined by nurse practitioner Cleo Jama in all elements of the case discussed with attending Dr. Eubanks DISPOSITION: Home to the care of his . Patient Condition at Discharge: Fair Plan - Discharge Summary New Discharge Prescriptions: New amLODIPine [Norvasc] 10 mg PO DAILY #30 tab Aspirin 81 mg PO DAILY Atorvastatin [Lipitor] 40 mg PO DAILY #30 tab hydrALAZINE HCL [Apresoline] 50 mg PO TID #90 tab Nitroglycerin Sl Tabs [Nitrostat] 0.4 mg SUBLINGUAL Q5M PRN #20 tab PRN Reason: Chest Pain Continue Carvedilol [Coreg] 3.125 mg PO BID Discontinued Gabapentin 600 mg PO BID Discharge Medication List Carvedilol [Coreg] 3.125 mg PO BID 07/24/16 [History] Aspirin 81 mg PO DAILY 02/01/17 [Rx] Atorvastatin [Lipitor] 40 mg PO DAILY #30 tab 02/01/17 [Rx] Nitroglycerin Sl Tabs [Nitrostat] 0.4 mg SUBLINGUAL Q5M PRN #20 tab 02/01/17 [Rx ] amLODIPine [Norvasc] 10 mg PO DAILY #30 tab 02/01/17 [Rx] hydrALAZINE HCL [Apresoline] 50 mg PO TID #90 tab 02/01/17 [Rx] Follow up Appointment(s)/Referral(s): Brina Negrete MD [STAFF PHYSICIAN] - 02/03/17 (please call office to schedule an appointment) Tito Chiu DO [Primary Care Provider] - 1 Week (please call office to schedule an appointment) Drew Caal MD [STAFF PHYSICIAN] - 1 Week (please call office to schedule an appointment) Ambulatory/Diagnostic Orders: Basic Metabolic Panel [LAB.AMB] Location: Determined By Patient Complete Blood Count w/diff [LAB.AMB] Location: Determined By Patient Patient Instructions/Handouts: Chest Pain (DC), Chronic Hypertension (DC) Activity/Diet/Wound Care/Special Instructions: low salt diet Avoid NSAIDS Discharge Disposition: HOME SELF-CARE
--- NOTE | 2017-02-03 14:18 | DS ---
DISCHARGE SUMMARY DATE OF SERVICE: 02/01/2017 ATTENDING NOTE: This patient was seen and examined by me on 02/01/17. I discussed with nurse practitioner, Ms. Jama. The patient doing much better. Blood pressure is better controlled at 155/81. ON EXAMINATION: LUNGS: Fair air entry. CARDIOVASCULAR: First and second sounds normal. BUN 27, creatinine 1.95. LDL 102. Care was discussed with the patient and in detail including followup. Questions were answered. The patient to follow up with Nephrology. The patient put on baby aspirin, Lipitor. Discharge planning more than 35 minutes. MMODL / IJN: [id number] /
== END 2017-02-01 13:09 | disposition home or self-care (01) ==
LOC: EC 17:12 → 6SEL 19:20
PROVIDERS: ADMIT Hospitalist; ATTEND Hospitalist
DX: I13.10 Hypertensive heart and chronic kidney disease without heart failure, with stage 1 through stage 4 chronic kidney disease, or unspecified chronic kidney disease (principal); E78.5 Hyperlipidemia, unspecified; R07.89 Other chest pain; N18.3 Chronic kidney disease, stage 3 (moderate); R51 Headache; E66.01 Morbid (severe) obesity due to excess calories; G62.9 Polyneuropathy, unspecified; R80.9 Proteinuria, unspecified; N17.9 Acute kidney failure, unspecified; Z79.899 Other long term (current) drug therapy; Z68.41 Body mass index [BMI] 40.0-44.9, adult; Z82.49 Family history of ischemic heart disease and other diseases of the circulatory system
CPT/HCPCS: 96372 ×2; 96376; 96361; 96374; 96375; 99284; 36415; 94760; 93005; 93306; 80061; 80053; 80048; 82550 ×2; 82553 ×2; 83735; 84484 ×2; 85025 ×2; 85610; 85730; 81001; 71020; G0378 ×3; J0360 ×2; J1650 ×2

== ENCOUNTER → 2017-03-12 | Outpatient (CLI) | payer OTHER ==
--- NOTE | 2017-03-12 10:34 | CT ---
EXAMINATION TYPE: CT abdomen pelvis wo con DATE OF EXAM: 03/12/2017 COMPARISON: 02/03/2012 HISTORY: 56-year-old male hypertension, decreased GFR CT DLP: 1189 mGycm. Automated exposure control for dose reduction was used. TECHNIQUE: Contiguous axial scanning of the abdomen and pelvis without IV contrast. Coronal and sagit bhavesh reconstructions performed. FINDINGS: The heart is upper limits of normal in size without pericardial effusion. Lung bases clear without pl eural effusion. Small hiatal hernia. Liver mildly enlarged measuring 18.4 cm craniocaudal. Noncontrast appearance of the gallbladder, adrenal glands, spleen, and pancreas shows no gross abnorm ality. 2.4 cm cyst in the central left kidney. A cyst was present in 2012 as well. 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 No hydronephrosis seen on either side. No significant calcifications in either renal artery. No dilated small bowel, free fluid, or free air. Scattered nonenlarged and borderline sized mesenteric lymph nodes are unchanged from 2012 measuring u p to 7 mm. Normal appendix. Oral contrast has progressed to the upper ascending colon. Scattered mild stool mitul en and occasional diverticulosis. No pericolonic inflammatory change seen. Small to moderate-sized fatty umbilical hernia. The hernia sac measures 4.8 cm wide and has slightly enlarged from 2012 were measured 3.6 cm wide. Bladder urine distended. Prostate gland measures 4.0 cm wide. No abnormal fluid collection in the pel vis and no pelvic lymphadenopathy seen. Bones: Mild degenerative changes at the hips. Degenerative disc disease and facet arthropathy lower l umbar spine. No osseous destructive process. IMPRESSION: 1. Small to moderate-sized fatty umbilical hernia now measuring 4.8 cm, slightly enlarged from 2012 where it measured 3.6 cm wide. 2. 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 No hydronephrosis on eit her side. 3. Mild hepatomegaly (18.4 cm) and a small hiatal hernia.
== END | disposition home or self-care (01) ==
LOC: RADCTMAIN 07:17
PROVIDERS: ATTEND Internal Medicine Nephrology
DX: K42.9 Umbilical hernia without obstruction or gangrene (principal); Q63.2 Ectopic kidney; R16.0 Hepatomegaly, not elsewhere classified; I10 Essential (primary) hypertension
CPT/HCPCS: 36415; 74176

== ENCOUNTER → 2017-03-17 | Outpatient (CLI) | payer OTHER ==
--- NOTE | 2017-03-17 12:06 | XR ---
EXAMINATION TYPE: XR foot complete RT DATE OF EXAM: 03/17/2017 CLINICAL HISTORY: Right foot in particular heal pain TECHNIQUE: Frontal, lateral, and oblique images of the right foot are obtained. COMPARISON: None FINDINGS: There is no acute fracture/dislocation evident in the right foot. The Spencer's toe is pres ent. There is flexion and varus positioning of distal fourth and fifth toes. There is unfused apophys is near the cuboid bone. There is large inferior calcaneal spur. There is spurring from posterior sup erior calcaneus at the distal Achilles tendon attachment. Accessory ossicle posterior to talus is pre sent. There is some spurring from the superior anterior talus. The overlying soft tissue appears unre markable. IMPRESSION: Large inferior calcaneal spur noted.
== END | disposition home or self-care (01) ==
LOC: RADXRMAIN 10:34
PROVIDERS: ATTEND Physician Assistant
DX: M77.31 Calcaneal spur, right foot (principal)

== ENCOUNTER → 2017-04-21 | Outpatient (CLI) | payer OTHER ==
--- NOTE | 2017-04-21 11:15 | XR ---
EXAMINATION TYPE: XR abdomen 2V DATE OF EXAM: 04/21/2017 HISTORY: Pain. Technique: 2 views of the abdomen are submitted. Comparison: None. Findings: There is no convincing evidence of pneumoperitoneum. The Bowel gas pattern is nonspecific and nonobstructive. No sizable air-fluid levels are seen. No mass effects are noted. No renal calcifications are identified. IMPRESSION: 1. Nonspecific nonobstructive bowel gas pattern
== END | disposition home or self-care (01) ==
LOC: RADXRMAIN 10:48
PROVIDERS: ATTEND Family Medicine
DX: R10.31 Right lower quadrant pain (principal)
CPT/HCPCS: 74020

== ENCOUNTER 2018-05-18 12:08 | Emergency (ER) | payer OTHER ==
[2018-05-18] MEDS ORDERED: DIPH,PERTUS(ACELL)TETVAC-LF 0.5 ML VIAL IM ONE (12:42)
--- NOTE | 2018-05-18 12:52 | ED ---
General Adult HPI - General Chief complaint: Wound/Laceration Stated complaint: Left Hand Laceration Source: patient, RN notes reviewed, old records reviewed Mode of arrival: ambulatory Limitations: no limitations - History of Present Illness Initial comments: 58-year-old male patient past medical history of diabetes, hypertension presents to ED after sustaining a mechanical hand injury to his right thumb. Patient was splitting wood, was holding a piece of wood with his left hand , patient states that he grazed his hand with axe. Patient states that he suffered a superficial laceration to his right hand. Patient denies any other injury. Patient has full range of motion of his hand. Patient denies chest pain or shortness breath, abdominal pain, any other complaints. Systemic: Pt denies fatigue, myalgia, fever/chills, rash. Pt denies weakness, night sweats, weight loss. Neuro: Pt denies headache, visual disturbances, syncope or pre-syncope. HEENT: Pt denies ocular discharge or irritation, otalgia, rhinorrhea, pharyngitis or notable lymphadenopathy. Cardiopulmonary: Pt denies chest pain, SOB, heart palpitations, dyspnea on exertion. Abdominal/GI: Pt denies abdominal pain, n/v/d. : Pt denies dysuria, burning w/ urination, frequency/urgency. Denies new onset urinary or bowel incontinence. MSK: Pt denies myalgia, loss of strength or function in extremities. Neuro: Pt denies new onset weakness, paresthesias. - Related Data Home Medications Medication Instructions Recorded Confirmed Carvedilol [Coreg] 6.25 mg PO BID 05/18/18 05/18/18 DULoxetine HCL [Cymbalta] 30 mg PO DAILY 05/18/18 05/18/18 Gabapentin 600 mg PO TID 05/18/18 05/18/18 Lisinopril [Zestril] 5 mg PO DAILY 05/18/18 05/18/18 Spironolactone 25 mg PO DAILY 05/18/18 05/18/18 Previous Rx's Medication Instructions Recorded Aspirin 81 mg PO DAILY 02/01/17 Allergies Allergy/AdvReac Type Severity Reaction Status Date / Time No Known Allergies Allergy Verified 05/18/18 12:23 Review of Systems ROS Statement: Those systems with pertinent positive or pertinent negative responses have been documented in the HPI. ROS Other: All systems not noted in ROS Statement are negative. Past Medical History Past Medical History: Hyperlipidemia, Hypertension Additional Past Medical History / Comment(s): neuropathy, carpal tunnel, bowel obstruction History of Any Multi-Drug Resistant Organisms: None Reported Past Surgical History: Bowel Resection, Hernia Repair Additional Past Surgical History / Comment(s): carpal tunnel surgery, cataract Past Anesthesia/Blood Transfusion Reactions: No Reported Reaction Past Psychological History: No Psychological Hx Reported Smoking Status: Never smoker Past Alcohol Use History: Occasional Past Drug Use History: None Reported - Past Family History Father Family Medical History: Diabetes Mellitus Additional Family Medical History / Comment(s): pacemaker Mother Family Medical History: Hypertension, Renal Disease Additional Family Medical History / Comment(s): ulcers General Exam - General Exam Comments Initial Comments: Constitutional: NAD, AOX3, Pt has pleasant affect. HEENT: NC/AT, trachea midline, neck supple, no lymphadenopathy. Posterior pharynx non erythematous, without exudates. External ears appear normal, without discharge. Mucous membranes moist. Eyes PERRLA, EOM intact. There is no scleral icterus. No pallor noted. Cardiopulmonary: RRR, no murmurs, rubs or gallops, no JVD noted. Lungs CTAB in anterior and posterior angeles. No peripheral edema. Abdominal exam: Abdomen soft and non-distended. Abdomen non-tender to palpation in all 4 quadrants. Bowel sounds active in LLQ. No hepatosplenomegaly. No ecchymosis Neuro: CN II-XII grossly intact. No nuchal rigidity. MSK: Approximately 3 cm official laceration proximal to the MCP joint of his right hallux. Patient has full range of motion of his hand, flexion and extension abduction and abduction intact. Patient neurovascularly intact. Capillary refill less than 2 seconds. Sensation intact. No posterior calf tenderness bilaterally, homans sign negative bilaterally. Posterior tibialis and radial pulse +2 bilaterally. Sensation intact in upper and lower extremities. Full active ROM in upper and lower extremities, 5/5 stregnth. Limitations: no limitations Course Vital Signs 05/18/18 12:14 Temperature 98.0 F Pulse Rate 78 Respiratory 18 Rate Blood Pressure 153/88 O2 Sat by Pulse 98 Oximetry Procedures - Laceration Laceration #1 Consent Obtained: verbal consent Time Out Performed: Yes Indication: laceration Site: hand Size (cm): 3 Description: linear Depth: simple, single layer Anesthetic Used: lidocaine 1% Anesthesia Technique: local infiltration Amount (mls): 5 Pre-repair: wound explored, deep structures intact Size of Sutures: 5-0 Number of Sutures: 5 Technique: simple, interrupted Patient Tolerated Procedure: well, no complications Medical Decision Making - Medical Decision Making 58-year-old male patient past medical history of diabetes, hypertension presents to ED after sustaining a mechanical hand injury to his right thumb. Patient was splitting wood, was holding a piece of wood with his left hand , patient states that he grazed his hand with axe. Patient states that he suffered a superficial laceration to his right hand. Physical exam displayed Approximately 3 cm official laceration proximal to the MCP joint of his right hallux. Patient has full range of motion of his hand, flexion and extension abduction and abduction intact. Patient neurovascularly intact. Capillary refill less than 2 seconds. Sensation intact. Plain film of hand displayed soft tissue swelling, radiopaque foreign body level trapezium. Further history taking the patient revealed that this is a typical nail which is not and his hand for approximately 30 years. Wound was closed primarily with 5 simple interrupted sutures. Patient tolerated procedure well. Wound explored extensively, no foreign bodies, ligamentous or bony involvement. Patient tetanus updated. Patient educated regarding suture care and signs/symptoms of infection. Patient to return to ED in 10 days to have sutures removed. Patient return if any signs of infection or any other new symptoms develop. Patient to follow primary care physician one to 2 days. Case discussed and pt seen with Dr. Morin. Disposition Clinical Impression: Laceration Disposition: HOME SELF-CARE Condition: Good Instructions: Care For Your Stitches (ED), Laceration (ED) Additional Instructions: Patient to adhere to previously discussed treatment plan and will take medication(s) as directed. Patient to follow up with PCP in 1-2 days. Patient to return to ED if symptoms do not improve. Is patient prescribed a controlled substance at d/c from ED?: No Referrals: Ammon Lama MD [Primary Care Provider] - 1-2 days Time of Disposition: 13:34
--- NOTE | 2018-05-18 13:02 | XR ---
EXAMINATION TYPE: XR hand complete LT DATE OF EXAM: 05/18/2018 COMPARISON: None HISTORY: Cut dorsal surface left hand between thumb and index finger with an ax TECHNIQUE: Three-view left hand FINDINGS: There is a radiopaque foreign body overlying the trapezium. No acute fractures are identified. Soft tissue injury over the radial aspect of the wrist is present. Joint spaces are preserved. IMPRESSION: 1. Soft tissue injury radial aspect proximal wrist. 2. Radiopaque foreign body at the level of the trapezium. 3. No acute fractures evident.
[2018-05-18] MEDS ORDERED: LIDOCAINE 1% INJ 10MG/ML (20 ML MDV) SQ STA (13:09)
--- NOTE | 2018-05-18 13:45 | ED ---
Medical Decision Making - Medical Decision Making 3 days of keflex antibiotic prophylaxis added Disposition Clinical Impression: Laceration Disposition: HOME SELF-CARE Condition: Good Instructions: Care For Your Stitches (ED), Laceration (ED) Additional Instructions: Patient to adhere to previously discussed treatment plan and will take medication(s) as directed. Patient to follow up with PCP in 1-2 days. Patient to return to ED if symptoms do not improve. Prescriptions: Cephalexin [Keflex] 500 mg PO Q6HR 3 Days #12 cap Is patient prescribed a controlled substance at d/c from ED?: No Referrals: Ammon Lama MD [Primary Care Provider] - 1-2 days Time of Disposition: 13:45
[2018-05-18 14:02] VITALS: BP 168/78; PULSE 74; RESP 16; TEMP 98.6
== END 2018-05-18 13:50 | disposition home or self-care (01) ==
LOC: EC 12:08
DX: S61.412A Laceration without foreign body of left hand, initial encounter (principal); E78.5 Hyperlipidemia, unspecified; I10 Essential (primary) hypertension; Z23 Encounter for immunization; Z79.899 Other long term (current) drug therapy; W26.8XXA Contact with other sharp object(s), not elsewhere classified, initial encounter; Y92.009 Unspecified place in unspecified non-institutional (private) residence as the place of occurrence of the external cause
CPT/HCPCS: 73130; 90715; 99283; 12002; 90471; J2001

== ENCOUNTER 2020-11-13 09:58 | Emergency (ER) | payer OTHER ==
[2020-11-13 10:02] VITALS: TEMP 97.5
[2020-11-13] MEDS ORDERED: MORPHINE SULFATE 4 MG/ML SYRINGE IVP STA (10:13)
[2020-11-13] MEDS ORDERED: SODIUM CHLORIDE 0.9% 1,000 ML IV STA (10:16)
[2020-11-13 10:39] LABS: Basophils % (A) 0 %; Eosinophils # (A) 0.4 k/uL (0-0.7); Eosinophils % (A) 5 %; HCT 40.7 % (39.0-53.0); Lymphocytes # (A) 1.6 k/uL (1.0-4.8); Lymphocytes % (A) 23 %; MCH 32.1 pg (25.0-35.0); MCHC 34.4 g/dL (31.0-37.0); MCV 93.4 fL (80.0-100.0); Mean Platelet Volume 7.7; Monocytes # (A) 0.4 k/uL (0-1.0); Monocytes % (A) 6 %; Neutrophils # (A) 4.5 k/uL (1.3-7.7); Neutrophils % (A) 64 %; Platelet Count 142 k/uL (150-450); RBC 4.36 m/uL (4.30-5.90)
[2020-11-13 10:42] LABS: Appearance,Urine Clear (Clear); Bilirubin,Urine Negative (Negative); Blood,Urine Negative (Negative); Color,Urine Light Yellow; Glucose,Urine (UA) Negative (Negative); Ketones,Urine Negative (Negative); Leukocyte Esterase,Urine Negative (Negative); Nitrite,Urine Negative (Negative); Protein,Urine Negative (Negative); Specific Gravity,Urine 1.015 (1.001-1.035); Urobilinogen,Urine <2.0 mg/dL (<2.0)
[2020-11-13 10:58] LABS: Albumin 4.1 g/dL (3.5-5.0); Calcium 9.6 mg/dL (8.4-10.2); Potassium 5.1 mmol/L (3.5-5.1); Total Bilirubin 0.4 mg/dL (0.2-1.3); Total Protein 6.9 g/dL (6.3-8.2)
--- NOTE | 2020-11-13 11:30 | ED ---
General Adult HPI - General Chief complaint: Back Pain/Injury Stated complaint: flank & back pain Time Seen by Provider: 11/13/20 10:03 Source: patient, RN notes reviewed Mode of arrival: ambulatory Limitations: no limitations - History of Present Illness Initial comments: Patient is a 60-year-old male that presents to the emergency room complaining of right flank pain that radiates to his abdomen. He notes that he does have a history of chronic kidney disease and has had kidney infections in the past week came in to get evaluated. He noted that he did have some tenderness over his right flank and kidney area to palpation and stated that sitting a certain way made the pain feel better. He notes that he did try taking Tylenol last night when the pain started around 12:30 AM he notes that the Tylenol did allow him to get some sleep. Patient was just worried about a possible kidney infection. He also does have a history of a pelvic kidney. He was in no apparent distress or pain while sitting up in bed during the exam interview. He denied any chest pain shortness of breath headache nausea vomiting diarrhea constipation fever fatigue chills. He denied any frequency dysuria hematuria. - Related Data Home Medications Medication Instructions Recorded Confirmed Gabapentin 600 mg PO TID 05/18/18 11/13/20 Spironolactone 25 mg PO DAILY 05/18/18 11/13/20 lisinopriL [Zestril] 5 mg PO DAILY 05/18/18 11/13/20 Allopurinol [Zyloprim] 200 mg PO DAILY 11/13/20 11/13/20 Aspirin EC [Ecotrin Low Dose] 81 mg PO DAILY 11/13/20 11/13/20 Cholecalciferol [Vitamin D3 (25 25 mcg PO DAILY 11/13/20 11/13/20 Mcg = 1000 Iu)] carvediloL [Coreg] 3.125 mg PO BID 11/13/20 11/13/20 Allergies Allergy/AdvReac Type Severity Reaction Status Date / Time No Known Allergies Allergy Verified 11/13/20 11:05 Review of Systems ROS Statement: Those systems with pertinent positive or pertinent negative responses have been documented in the HPI. ROS Other: All systems not noted in ROS Statement are negative. Past Medical History Past Medical History: Hyperlipidemia, Hypertension Additional Past Medical History / Comment(s): neuropathy, carpal tunnel, bowel obstruction History of Any Multi-Drug Resistant Organisms: None Reported Past Surgical History: Bowel Resection, Hernia Repair Additional Past Surgical History / Comment(s): carpal tunnel surgery, cataract Past Anesthesia/Blood Transfusion Reactions: No Reported Reaction Past Psychological History: No Psychological Hx Reported Smoking Status: Never smoker Past Alcohol Use History: Occasional Past Drug Use History: None Reported - Past Family History Father Family Medical History: Diabetes Mellitus Additional Family Medical History / Comment(s): pacemaker Mother Family Medical History: Hypertension, Renal Disease Additional Family Medical History / Comment(s): ulcers General Exam Limitations: no limitations General appearance: alert, in no apparent distress Head exam: Present: atraumatic, normocephalic, normal inspection Eye exam: Present: normal appearance, PERRL, EOMI. Absent: scleral icterus, conjunctival injection, periorbital swelling Neck exam: Present: normal inspection. Absent: tenderness, meningismus, lymphadenopathy Respiratory exam: Present: normal lung sounds bilaterally. Absent: respiratory distress, wheezes, rales, rhonchi, stridor Cardiovascular Exam: Present: regular rate, normal rhythm, normal heart sounds. Absent: systolic murmur, diastolic murmur, rubs, gallop, clicks GI/Abdominal exam: Present: soft, tenderness (Right middle abdomen to deep palpation), normal bowel sounds. Absent: distended, guarding, rebound, rigid Extremities exam: Present: normal inspection, full ROM, normal capillary refill. Absent: tenderness, pedal edema, joint swelling, calf tenderness Back exam: Present: normal inspection, tenderness (With a right flank and kidney area) Neurological exam: Present: alert, oriented X3 Psychiatric exam: Present: normal affect, normal mood Skin exam: Present: warm, dry, intact, normal color. Absent: rash Course Vital Signs 11/13/20 09:59 Temperature 97.5 F L Pulse Rate 67 Respiratory 18 Rate Blood Pressure 132/83 O2 Sat by Pulse 100 Oximetry Medical Decision Making - Medical Decision Making 60-year-old male complaining of right flank pain with some radiation to the right middle abdominal region. Labs, 4 mg of morphine, 1 L normal saline, CT of the abdomen and pelvis ordered. Labs: Unremarkable compared to baseline. CT scan of the abdomen pelvis shows no acute process. Case discussed with Dr. Ulloa outpatient discharge home with follow-up to primary care. - Lab Data Result diagrams: 11/13/20 10:17 11/13/20 10:17 Lab Results 11/13/20 11/13/20 11/13/20 Range/Units 10:17 10:17 10:17 WBC 7.0 (3.8-10.6) k/uL RBC 4.36 (4.30-5.90) m/uL Hgb 14.0 (13.0-17.5) gm/dL Hct 40.7 (39.0-53.0) % MCV 93.4 (80.0-100.0) fL MCH 32.1 (25.0-35.0) pg MCHC 34.4 (31.0-37.0) g/dL RDW 13.0 (11.5-15.5) % Plt Count 142 L (150-450) k/uL MPV 7.7 Neutrophils % 64 % Lymphocytes % 23 % Monocytes % 6 % Eosinophils % 5 % Basophils % 0 % Neutrophils # 4.5 (1.3-7.7) k/uL Lymphocytes # 1.6 (1.0-4.8) k/uL Monocytes # 0.4 (0-1.0) k/uL Eosinophils # 0.4 (0-0.7) k/uL Basophils # 0.0 (0-0.2) k/uL Sodium 139 (137-145) mmol/L Potassium 5.1 (3.5-5.1) mmol/L Chloride 113 H (98-107) mmol/L Carbon Dioxide 18 L (22-30) mmol/L Anion Gap 8 mmol/L BUN 48 H (9-20) mg/dL Creatinine 2.10 H (0.66-1.25) mg/dL Est GFR (CKD-EPI)AfAm 39 (>60 ml/min/1.73 sqM) Est GFR (CKD-EPI)NonAf 34 (>60 ml/min/1.73 sqM) Glucose 104 H (74-99) mg/dL Calcium 9.6 (8.4-10.2) mg/dL Total Bilirubin 0.4 (0.2-1.3) mg/dL AST 27 (17-59) U/L ALT 20 (4-49) U/L Alkaline Phosphatase 76 (38-126) U/L Total Protein 6.9 (6.3-8.2) g/dL Albumin 4.1 (3.5-5.0) g/dL Amylase 81 (30-110) U/L Lipase 187 (23-300) U/L Urine Color Light Yellow Urine Appearance Clear (Clear) Urine pH 5.0 (5.0-8.0) Ur Specific [place] 1.015 (1.001-1.035) Urine Protein Negative (Negative) Urine Glucose (UA) Negative (Negative) Urine Ketones Negative (Negative) Urine Blood Negative (Negative) Urine Nitrite Negative (Negative) Urine Bilirubin Negative (Negative) Urine Urobilinogen <2.0 (<2.0) mg/dL Ur Leukocyte Esterase Negative (Negative) - Radiology Data Radiology results: report reviewed, image reviewed CT of the abdomen and pelvis: No acute process seen to account for the patient's symptoms. Disposition Clinical Impression: Right flank pain Disposition: HOME SELF-CARE Condition: Stable Instructions (If sedation given, give patient instructions): Abdominal Pain (ED) Additional Instructions: Please return to the Emergency Department if symptoms worsen or any other concerns. Follow-up with primary care as needed. Increase oral fluids over the next several days intake, as needed for pain. Avoid any stress activities or lifting. Is patient prescribed a controlled substance at d/c from ED?: No Referrals: Ammon Lama MD [Primary Care Provider] - 1-2 days Time of Disposition: 12:05
--- NOTE | 2020-11-13 11:35 | CT ---
EXAMINATION TYPE: CT abdomen pelvis wo con DATE OF EXAM: 11/13/2020 COMPARISON: 03/12/2017 HISTORY: abdominal pain Examination of the solid and hollow viscera is limited given the lack of contrast. FINDINGS: LUNG BASES: No evidence for nodule. No evidence for infiltrate. LIVER/GB: The gallbladder is unremarkable. No space-occupying hepatic lesion. PANCREAS: No pancreatic mass identified. No inflammatory process seen. SPLEEN: No evidence for splenomegaly. No intrasplenic lesions seen. ADRENALS: No adrenal nodules identified. No evidence for thickening. KIDNEYS: No evidence for renal mass. No nephrolithiasis. No hydronephrosis. BOWEL: Appendix has a normal appearance. No evidence of bowel obstruction. No inflammatory process. Lymph nodes: No evidence for adenopathy greater than 1 cm. Abdominal aorta: Atheromatous changes seen. No evidence for aneurysm. Genital organs: No significant abnormality. Other: No significant abnormality. IMPRESSION: NO ACUTE PROCESS SEEN TO ACCOUNT FOR THE PATIENT'S SYMPTOMS.
[2020-11-13 12:22] VITALS: BP 139/79; PULSE 79; RESP 16
== END 2020-11-13 12:21 | disposition home or self-care (01) ==
LOC: EC 09:58
DX: R10.9 Unspecified abdominal pain (principal); M54.9 Dorsalgia, unspecified; I12.9 Hypertensive chronic kidney disease with stage 1 through stage 4 chronic kidney disease, or unspecified chronic kidney disease; N18.9 Chronic kidney disease, unspecified; E78.5 Hyperlipidemia, unspecified; G62.9 Polyneuropathy, unspecified; Z79.82 Long term (current) use of aspirin
CPT/HCPCS: 36415; 80053; 82150; 83690; 85025; 81003; 74176; 99284; 96374; J2270

== ENCOUNTER → 2021-06-26 | Outpatient (CLI) | payer OTHER ==
--- NOTE | 2021-06-27 07:40 | US ---
EXAMINATION TYPE: US kidneys/renal and bladder DATE OF EXAM: 06/26/2021 COMPARISON: CT abdomen and pelvis November 13, 2020 CLINICAL HISTORY: N18.32 chronic kidney stage 3. 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 [employer] unable to visualize on today's ultrasound Left Kidney: 2 cysts noted, largest measuring 3.2 x 3.1 x 2.5cm, 2.) 1.7 x 1.3 x 1.3cm Bladder: wnl Bilateral Jets seen: No Normal Post Void Residual: The urinary bladder is satisfactorily distended. Bilateral ureteral jets are not seen. Left kidney h as 2 benign thin-walled cyst marked by the technologist. Some increased cortical echogenicity is pres ent. No hydronephrosis seen. Right kidney and right renal fossa are not identified. The upper right p elvic kidney with cortical thinning and loculated contour on CT is not clearly identified by sonograp her during scanning. IMPRESSION: Evidence of chronic medical renal disease. No left-sided hydronephrosis. Technologist cou ld not evaluate right kidney on this study due to known atypical location.
== END | disposition home or self-care (01) ==
LOC: RADUSWWP 15:23
PROVIDERS: ATTEND Internal Medicine Nephrology
DX: N18.32 Chronic kidney disease, stage 3b (principal)
CPT/HCPCS: 76770

== ENCOUNTER → 2021-12-25 | Outpatient (CLI) | payer OTHER ==
--- NOTE | 2021-12-25 15:05 | US ---
EXAMINATION TYPE: US kidneys/renal and bladder DATE OF EXAM: 12/25/2021 COMPARISON: 06/26/[address] 11/13/2020 CLINICAL HISTORY: 61-year-old male N18.32 Chronic kidney disease, stage 3b. CKD, patient states he hernandez s a right pelvic kidney, right kidney was not seen on last ultrasound. Hx left kidney cyst. 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 TECHNIQUE: Multiple sonographic images of the kidneys and bladder are obtained. FINDINGS: EXAM MEASUREMENTS: Area seen in the RLQ thought to be right kidney tissue: 6.8 x 3.1 x 3.2 cm Left Kidney: 13.3 x 6.6 x 6.1 cm RLQ appears of a small right pelvic kidney. Apparent mild pelvocaliectasis. Left Kidney: Appears enlarged. Central parapelvic cyst measures 4.0 cm. Some trace perinephric fluid could represent senescent change or chronic kidney disease. Bladder: Appears anechoic. Bilateral Jets seen: Right jet seen during exam IMPRESSION: 1. Ectopic and small right pelvic kidney. There is mild pelvicaliectasis which may be chronic given t he CT appearance on 11/13/2020. Recommend short interval follow-up ultrasound to ensure stability of t his appearance. 2. A 4 cm centrally located parapelvic cyst of the left kidney.
== END | disposition home or self-care (01) ==
LOC: RADUSWWP 07:59
PROVIDERS: ATTEND Internal Medicine Nephrology
DX: N18.32 Chronic kidney disease, stage 3b (principal)
CPT/HCPCS: 76770

== ENCOUNTER 2024-01-16 19:10 | Emergency (ER) | payer OTHER ==
[2024-01-16] MEDS ORDERED: LIDOCAINE 1% INJ 10MG/ML (20 ML MDV) ONE (19:35)
== END 2024-01-16 21:05 | disposition home or self-care (01) ==
LOC: EC 19:10
CPT/HCPCS: 12006; 99282

== ENCOUNTER → 2024-11-16 | Outpatient (CLI) | payer OTHER ==
--- NOTE | 2024-11-17 08:00 | US ---
EXAMINATION TYPE: US kidneys/renal and bladder DATE OF EXAM: 11/16/2024 COMPARISON: Multiple, most recent 12/25/2021 CLINICAL INDICATION: Male, 64 years old with history of N18.32 CDK; Hx HTN, Left renal cyst, and righ t pelvic kidney; Patient denies any other signs, symptoms, or relevant history TECHNIQUE: Grayscale imaging of the bilateral kidneys and urinary bladder: FINDINGS: EXAM MEASUREMENTS: Right Kidney: 9.6 x 2.8 x 2.4 cm Left Kidney: 14.3 x 5.9 x 5.9 cm Post Void Residual Volume: 27 mL Right Kidney: Within pelvis, small compare to left kidney Left Kidney: Simple cyst redemonstrated = 3.6 x 3.3 x 3.3 cm Bladder: WNL Bilateral Jets seen: No Normal Post Void Residual: 27 mL There is no evidence for hydronephrosis at this point in time. No nephrolithiasis is seen. No samy s are identified. The urinary bladder is anechoic. IMPRESSION: 1. Left renal cyst. [facility], , 11/17/2024 7:58 AM
== END | disposition home or self-care (01) ==
LOC: RADUSWWP 10:27
PROVIDERS: ATTEND Internal Medicine Nephrology
DX: N28.1 Cyst of kidney, acquired (principal); N18.32 Chronic kidney disease, stage 3b
CPT/HCPCS: 76770